=== PATIENT | female | born 1985 | race Caucasian/White ===

== ENCOUNTER 2020-12-21 16:56 | Emergency (ER) | payer BC ==
--- NOTE | 2020-12-21 17:41 | EDM.PDOC ---
ED HPI GENERAL MEDICAL PROBLEM - General Chief Complaint: Lower Extremity Injury/Pain Stated Complaint: PLYWOOD FELL ON L FOOT Time Seen by Provider: 12/21/20 17:00 Source of Information: Reports: Patient History Limitations: Reports: No Limitations - History of Present Illness INITIAL COMMENTS - FREE TEXT/NARRATIVE: Bárbara is a 35 year old female who presents to ER with complaints of left foot pain. Relates had a piece of plywood fall off a saw table and land on her foot. Has pain with weight bearing to the base of her left 4th toe and midfoot. Did apply ice and wrapped with shoshana bandage. Continued to hurt over the last 90 minutes so presented here. Onset: Today, Sudden Duration: Hour(s):, Constant Location: Reports: Lower Extremity, Left Quality: Reports: Ache Severity: Mild Improves with: Reports: Rest Worsens with: Reports: Other (weight bearing) Context: Reports: Trauma Associated Symptoms: Reports: No Other Symptoms Left Foot Pain Score (Numeric/FACES): 4 - Related Data Allergies Allergy/AdvReac Type Severity Reaction Status Date / Time No Known Allergies Allergy Verified 12/21/20 17:23 Home Meds: Home Meds . [No Known Home Meds] 12/21/20 [History] Past Medical History - Past Health History Medical/Surgical History: Denies Medical/Surgical History Social & Family History - Tobacco Use Tobacco Use Status *Q: Never Tobacco User Review of Systems - Review of Systems Review Of Systems: Comprehensive ROS is negative, except as noted in HPI. ED EXAM, GENERAL - Physical Exam Exam: See Below Exam Limited By: No Limitations General Appearance: Alert, WD/WN, No Apparent Distress Extremities: Normal Inspection, Limited Range of Motion (of 4th left toe), Other (tender to palpation to left mid lateral foot and to 4th toe) Neurological: Alert, Oriented Skin Exam: Warm, Dry, Intact Course - Vital Signs Last Recorded V/S: Last Vital Signs Temp 97.6 F 12/21/20 17:00 Pulse 82 12/21/20 17:00 Resp 16 12/21/20 17:00 BP 134/72 12/21/20 17:00 Pulse Ox 100 12/21/20 17:00 - Orders/Labs/Meds Orders: Active Orders 24 hr Category Date Time Status Foot Comp Min 3V Lt [CR] Stat Exams 12/21/20 17:13 Taken - Re-Assessments/Exams Free Text/Narrative Re-Assessment/Exam: 12/21/20 17:55 Xrays of foot negative. Patient informed. Departure - Departure Time of Disposition: 17:56 Disposition: Home, Self-Care 01 Condition: Good Clinical Impression: Contusion of foot, left - Discharge Information *PRESCRIPTION DRUG MONITORING PROGRAM REVIEWED*: No *COPY OF PRESCRIPTION DRUG MONITORING REPORT IN PATIENT MAK: No Instructions: Foot Contusion, [id number] Forms: ED Department Discharge Additional Instructions: 1. Rest 2. Weight bear as tolerated 3. Ice to foot every 2 hours tonight 4. Elevate foot to prevent swelling 5. Ibuprofen as needed for pain 6. Follow up in 5-7 days with primary care provider if continue to have foot pain, may need repeat xrays at that time Sepsis Event Note (ED) - Evaluation Sepsis Screening Result: No Definite Risk - Focused Exam Vital Signs: Vital Signs Temp Pulse Resp BP Pulse Ox 12/21/20 17:00 97.6 F 82 16 134/72 100 - My Orders Last 24 Hours: My Active Orders 12/21/20 17:13 Foot Comp Min 3V Lt [CR] Stat - Assessment/Plan Last 24 Hours: My Active Orders 12/21/20 17:13 Foot Comp Min 3V Lt [CR] Stat
--- NOTE | 2020-12-21 18:15 | CR ---
[id number] RAD/RAD Foot Left 3V Min EXAM: RAD Foot Left 3V Min CLINICAL DATA: TRAUMA COMPARISON: NO PREVIOUS SIMILAR EXAM IS AVAILABLE. FINDINGS: No fracture or dislocation is seen. There is no radiopaque foreign body in the soft tissues. There is no air in the soft tissues. There is no cortical thickening or periosteal reaction either. IMPRESSION: NEGATIVE PLAIN FILM EXAM. Jeb Sanchez MD 12/22/20 1704 Thank you for allowing us to participate in the care of your patient.
== END 2020-12-21 18:07 | disposition home or self-care (01) ==
LOC: VM.ED 16:56
DX: S90.32XA Contusion of left foot, initial encounter (principal); W20.8XXA Other cause of strike by thrown, projected or falling object, initial encounter
CPT/HCPCS: 73630-LT; 99283